=== PATIENT | female | born 1960 | race Caucasian/White ===

== ENCOUNTER 2016-09-25 19:40 | Emergency (ER) | payer MEDICAID, OTHER ==
[2016-09-25] MEDS ORDERED: DIPHTH,PERTUSS(ACELL),TET VAC 0.5 ML VIAL IM ONE ×2 (20:06→20:11)
--- OUTSIDE RECORDS SUMMARY | 2016-09-25 20:07 | XMS REPORT | Continuity of Care Document ---
:1960 Author Organization [facility] Address Unavailable [place] [id number] Care Team Providers Name Role Phone Unavailable Primary Care Provider Unavailable Source Comments This disclosure is being made pursuant to the [employer] program and maynot contain all information available regarding this patient.[facility] Active Allergies and Adverse Reactions Not on File Current Medications Be aware that medications may not be up to date as of this document. Alwaysverify current medications with the patient. Not on file Active Problems Not on file Social History Tobacco Use Types Packs/Day Years Used Date Never Assessed Plan of Care Health Maintenance Due Date Last Done Comments Retired-Pertussis Vaccine Adult 1981 Retired-Tetanus Vaccine Adult 1981 Pap Smear 1983 Mammogram 2002 Colonoscopy 2012 Well Adult Visit 2012 Retired-INFLUENZA VACCINE 12/10/2014 Results from Last 3 Months Not on file
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
== END 2016-09-25 20:15 | disposition home or self-care (01) ==
LOC: ER 19:40
DX: S51.811A Laceration without foreign body of right forearm, initial encounter (principal); X99.9XXA Assault by unspecified sharp object, initial encounter; Y93.89 Activity, other specified; Y92.10 Unspecified residential institution as the place of occurrence of the external cause; Y99.0 Civilian activity done for income or pay; Z23 Encounter for immunization; M19.90 Unspecified osteoarthritis, unspecified site; E10.8 Type 1 diabetes mellitus with unspecified complications; I10 Essential (primary) hypertension; E78.5 Hyperlipidemia, unspecified